=== PATIENT | female | born 1940 | race Hispanic/Latino ===

== ENCOUNTER 2017-01-27 10:35 | Outpatient (CLI) | payer MEDICARE ==
--- NOTE | 2017-01-27 12:53 | Mammography Report ---
BILATERAL MAMMOGRAM with CAD: HISTORY: Cancer screening. Comparison study is dated January 24, 2016. FINDINGS: The breast tissue is heterogeneously dense, which could obscure detection of small masses (approximately 50%-75% glandular). No mass, distortion, suspicious calcification, or skin change is seen. Stable scattered benign calcifications are seen bilaterally. IMPRESSION: Negative mammogram. There is no mammographic evidence of malignancy. RECOMMENDATION: Follow-up per ACS guidelines. BI-RADS CATEGORY: 1 = Negative ACR BI-RADS MAMMOGRAPHIC CODES: 0 = Needs additional imaging evaluation; 1 = Negative; 2 = Benign; 3 = Probably benign; 4 = Suspicious; 5 = Malignant; 6 = Known biopsy-proven malignancy COMMENT: 1. Dense breast tissue, i.e., adenosis, fibrocystic changes, etc., may obscure an underlying neoplasm. 2. Approximately 10% of cancers are not detected with mammography. 3. A negative mammography report should not delay biopsy if a clinically suspicious mass is present. COMMENT: Patient follow-up letters are generated in [employer] Applications.
== END 2017-01-27 10:36 | disposition home or self-care (01) ==
LOC: MAMMO 10:35
PROVIDERS: ATTEND Internal Medicine
DX: Z12.31 Encounter for screening mammogram for malignant neoplasm of breast (principal)
CPT/HCPCS: 77067; G0202

== ENCOUNTER 2018-02-12 10:07 | Outpatient (CLI) | payer MEDICARE ==
--- NOTE | 2018-02-12 13:09 | Mammography Report ---
BILATERAL DIGITAL SCREENING MAMMOGRAM with CAD : 02/12/18 10:07:00 CLINICAL: Routine screening. COMPARISON:07/30/16 FINDINGS: The breasts are heterogeneously dense, which may obscure small masses.Bilateral benign calcifications. No mass, architectural distortion or suspicious calcifications. IMPRESSION: No mammographic evidence of malignancy. BI-RADS CATEGORY: 2 -- Benign RECOMMENDATION: Routine mammographic screening in one year. COMMENT: Patient follow-up letters are generated by our [employer] application.
== END 2018-02-12 10:08 | disposition home or self-care (01) ==
LOC: MAMMO 10:07
PROVIDERS: ATTEND Internal Medicine
DX: Z12.31 Encounter for screening mammogram for malignant neoplasm of breast (principal); Z88.2 Allergy status to sulfonamides; Z88.6 Allergy status to analgesic agent
CPT/HCPCS: 77067

== ENCOUNTER 2019-02-16 12:17 | Outpatient (CLI) | payer MEDICARE ==
--- NOTE | 2019-02-16 14:45 | Mammography Report ---
DEXA BONE DENSITY SCAN INDICATION: AGE RELATED OSTEOPOROSIS COMPARISON: 01/24/2016 LUMBAR SPINE (L1-L4): Bone mineral density (BMD) is 0.848 g/cm2. T-score is -1.8 (standard deviations of Young Adult mean). Z-score is 0.8 (standard deviations of Age Matched mean). LEFT FEMORAL NECK: Bone mineral density (BMD) is 0.572 g/cm2. T-score is -2.5 (standard deviations of Young Adult mean). Z-score is -0.3 (standard deviations of Age Matched mean). DENSITOMETRY TRENDS: Lumbar change from prior study: Decreased 4.4%. Total mean hip change from previous study: Decreased 5.3%. IMPRESSION: 1. WHO Classification: Osteoporosis. Fracture Risk: High. Signer Name: Clyde Drake MD Signed: 02/16/2019 2:41 PM Workstation Name: [id number]
--- NOTE | 2019-02-22 10:25 | Mammography Report ---
BILATERAL DIGITAL SCREENING MAMMOGRAM INDICATION: Routine screening mammography. TECHNIQUE: Digital bilateral 2D mammography was obtained in the craniocaudal and mediolateral obliq ue projections. COMPARISON: 02/12/2018 FINDINGS: Breast Density: The breasts are heterogeneously dense, which may obscure small masses. No mass, architectural distortion or suspicious calcifications. Scattered bilateral benign calcificat ions. IMPRESSION:No mammographic evidence of malignancy. BI-RADS Category 2: Benign. No mammographic evidence of malignancy. Recommend routine screening ma mmography in one year. A "normal" or negative report should not discourage follow up or biopsy of a clinically significant f inding. A written summary of these findings will be mailed to the patient. The patient will be entered into a mammography reporting system which will generate a reminder letter for the patient's next appointmen t at the appropriate interval. The [employer] recommends yearly mammograms starting at age 40 and continuing as l joanne as a woman is in good health. Breast MRI is recommended for women with an approximate 20-25% or greater lifetime risk of breast cancer, including women with a strong family history of breast or ova milena cancer or who have been treated for Hodgkin's disease. Signer Name: Ramy Martinez MD Signed: 02/22/2019 10:21 AM Workstation Name: [id number]
== END 2019-02-16 12:18 | disposition home or self-care (01) ==
LOC: MAMMO 12:17
PROVIDERS: ATTEND Internal Medicine
DX: Z12.31 Encounter for screening mammogram for malignant neoplasm of breast (principal); M81.0 Age-related osteoporosis without current pathological fracture
CPT/HCPCS: 77067; 77080